=== PATIENT | male | born 1995 | race Caucasian/White ===

== ENCOUNTER 2017-09-19 21:42 | Emergency (ER) | payer SELFPAY ==
[2017-09-19 22:08] LABS: ADD MAN DIFF? NO
[2017-09-19 22:09] LABS: BASO % 0 % (0-3); EOS % 1 % (0-3); HEMOGLOBIN 14.3 g/dL (13.0-17.5); LYMPH # 1.1 x10^3/uL (1.0-4.8); LYMPH % 14 % (24-48); MEAN CORPUSCULAR HEMOGLOBIN 30 pg (25-35); MEAN CORPUSCULAR HGB CONC 36 g/dL (31-37); MEAN CORPUSCULAR VOLUME 85 fL (79-100); MONO # 0.6 x10^3/uL (0.0-1.1); MONO % 8 % (0-9); NEUT # 5.9 x10^3uL (1.8-7.7); NEUT % 77 % (31-73); PLATELET COUNT 200 x10^3/uL (140-400); RED BLOOD COUNT 4.71 x10^6/uL (4.30-5.70); RED CELL DISTRIBUTION WIDTH 13.6 % (11.5-14.5); WHITE BLOOD COUNT 7.6 x10^3/uL (4.0-11.0)
[2017-09-19] MEDS: fentaNYL PF VIAL 100 MCG/2 ML VIAL IV (22:10)
[2017-09-19] MEDS: IV NORMAL SALINE 1000ML BAG 1,000 ML IV (22:10)
[2017-09-19 22:43] LABS: ANION GAP 12 (6-14); BLOOD UREA NITROGEN 15 mg/dL (8-26); CALCIUM 9.1 mg/dL (8.5-10.1); CARBON DIOXIDE 24 mmol/L (21-32); CHLORIDE 107 mmol/L (98-107); CREATININE 0.8 mg/dL (0.7-1.3); GFR 124.5; GLUCOSE 96 mg/dL (70-99); POTASSIUM 3.7 mmol/L (3.5-5.1); SODIUM 143 mmol/L (136-145)
[2017-09-19 22:44] LABS: LIPASE 95 U/L (73-393); MAGNESIUM 1.8 mg/dL (1.8-2.4)
[2017-09-19 22:45] LABS: ETHANOL < 10 mg/dL (0-10)
[2017-09-20] MEDS: HYDROcodone/APAP 5/325MG 1 TAB TABLET PO (00:22)
== END 2017-09-20 00:34 | disposition home or self-care (01) ==
LOC: ER 09-20 00:34
DX: S70.12XA Contusion of left thigh, initial encounter (principal); V80.010A Animal-rider injured by fall from or being thrown from horse in noncollision accident, initial encounter; Y93.89 Activity, other specified; Y92.89 Other specified places as the place of occurrence of the external cause; Y99.8 Other external cause status
CPT/HCPCS: 36415; 71045; 72170; 73552; 80048; 83690; 83735; 85025; 86850; 86900; 86901; 96374; 99285-25; G0480; J3010; J7030